=== PATIENT | male | born 2000 | race Caucasian/White ===

== ENCOUNTER 2019-12-18 09:47 | Emergency (ER) | payer BC, SELFPAY ==
--- NOTE | ~2019-12-18 | XR_ITS ---
XR abdomen/kub 1V 12/18/2019 10:31 INDICATION: Right flank pain TECHNIQUE: KUB COMPARISON: CT dated 12/18/2019 FINDINGS: Bowel gas pattern is normal. Moderate colonic fecal loading obscures the kidneys and pelvis . There is no evidence of free air, mass, organomegaly, ascites or obstruction. No abnormal calculi are seen. The bones appear intact. IMPRESSION: 1: No acute abdominal abnormality identified. Reviewed, dictated and finalized at location B.
--- NOTE | ~2019-12-18 | CT_ITS ---
EXAMINATION: CT abdomen pelvis wo con DATE: 12/18/2019 10:30 INDICATION: Right flank pain. TECHNIQUE: Computed tomography (CT) of the abdomen and pelvis was performed without intravenous contr ast. Automated exposure control and iterative reconstruction technique were employed. The dose-length product was 216.10 mGy-cm. COMPARISON: 03/05/2019 FINDINGS: Lung bases are clear. Visualized inferior heart is normal. No pericardial or pleural effusion. Liver, gallbladder, spleen, pancreas and bilateral adrenal glands are normal. There are bilateral 1-[address] ones in both kidneys, 2 on the right and 5 on the left. There is an additional 102 mm stone at the ri ght ureterovesicular junction which results in mild right hydroureteronephrosis. The bladder is decom pressed. Bowels including the appendix are normal. No free intraperitoneal gas or fluid. No pathologi wil enlarged abdominal or pelvic lymphadenopathy. Mild lumbar levocurvature. Small bone island at t he left femoral head. IMPRESSION: 1. Bilateral nephrolithiasis with at least partially obstructing 1-2 mm stone at the right ureteroves icular junction with mild right hydroureteronephrosis. Reviewed, dictated and finalized at location A. IMPRESSION: 1. Bilateral nephrolithiasis with at least partially obstructing 1-2 mm stone a t the right ureterovesicular junction with mild right hydroureteronephrosis.
[2019-12-18 09:59] VITALS: BP 129/78; PULSE 73; RESP 23; TEMP 36.3; O2SAT 100
[2019-12-18] MEDS: ONDANSETRON INJ 4 MG/2 ML VIAL (10:04)
[2019-12-18 10:16] LABS: Basophils Absolute Auto 0.1 K/mm3 (0.0-0.1); Basophils Percent Auto 0.4 % (0.2-1.2); Eosinophils Absolute Auto 0.1 K/mm3 (0-0.3); Eosinophils Percent Auto 1.1 % (0-4.4); Hematocrit 42.2 % (42.0-52.0); Hemoglobin 14.4 g/dL (14.0-18.0); Immature Granulocyte Absolute 0.03 K/mm3 (0.00-0.031); Immature Granulocyte Percent A 0.2 % (0-0.5); Lymphocytes Absolute Auto 6.35 K/mm3 (0.9-3.2); Lymphocytes Percent Auto 49.3 % (18.3-44.2); Mean Corpuscular HGB Conc 34.1 g/dl (32-36); Mean Corpuscular Hemoglobin 27.9 pg (26-34); Mean Corpuscular Volume 81.6 fl (80-100); Mean Platelet Volume 10.1 fl (7.4-10.4); Monocytes Percent Auto 7.4 % (2.6-8.5); Neutrophils Absolute Auto 5.4 K/mm3 (1.3-6.7); Neutrophils Percent Auto 41.6 % (45.5-73.1); Platelet Count Result 285 k/mm3 (150-375); Red Blood Count 5.17 M/mm3 (4.6-6.20); White Blood Count 12.9 K/mm3 (4.5-10.0)
[2019-12-18] MEDS: MORPHINE SULFATE 4 MG/ML INJ IV PUSH (10:24)
--- NOTE | 2019-12-18 10:27 | PC.NURSE ---
Pt to CT scan via WC.
[2019-12-18] MEDS: FAMOTIDINE 20 MG/2 ML VIAL IV PUSH (10:34)
[2019-12-18] MEDS: SODIUM CHLORIDE 0.9% IV 1,000 ML 999 ML IV CONT ×2 (10:35)
[2019-12-18 10:43] LABS: Add Urine Microscopic? YES; Appearance Urine Clear (Clear); Bilirubin Urine Negative (Negative); Blood Urine 2+ (Negative); Calcium Oxalate Crystals Urine Present /hpf; Color Urine Yellow (Yellow); Glucose Urine UA Negative (Negative); Ketones Urine Negative (Negative); Leukocyte Esterase Ur Negative LEU/UL (Negative); Mucus Urine Moderate /lpf; Nitrate Urine Negative (Negative); Protein Urine Negative (Negative); RBC Urine 21-50 /hpf (0-2); Specific Grav Ur 1.023 (1.001-1.035); Squamous Epithelial Cell Urine Rare /hpf (Few); Urobilinogen Urine Negative mg/dL (<2.0)
[2019-12-18 10:52] LABS: Alanine Aminotransferase 26 U/L (4-50); Albumin Level 4.7 g/dL (3.5-5.1); Alkaline Phosphatase 83 U/L (38-126); Aspartate Amino Transferase 35 U/L (17-59); Bilirubin,Total 0.3 mg/dL (0.2-1.3); Blood Urea Nitrogen 13 mg/dL (9-20); Calcium 9.3 mg/dL (8.4-10.2); Carbon Dioxide 24 mmol/L (22-30); Chloride 102 mmol/L (98-107); Estimated CRCL calculation 138 ml/min; Estimated Glomerular Filt Rate > 60; Glucose 127 mg/dL (75-110); Lipase 44 U/L (23-300); Sodium 138 mmol/L (137-145)
--- NOTE | 2019-12-18 11:08 | PC.NURSE ---
Addendum entered by Jes Sheridan RN 12/18/19 11:09: Entered on wrong pt. Original Note: RN report received from Pt resting on stretcher, SOLIS Rowell at bedside.
--- NOTE | 2019-12-18 11:09 | PC.NURSE ---
RN report given by Renée. Pt resting on stretcher, pt medicated, pain .
[2019-12-18] MEDS: KETOROLAC 30 MG/ML VIAL (*BKC) IV PUSH (11:15)
--- NOTE | 2019-12-18 11:16 | ED.ABDPAIN ---
HPI - Abdominal Pain General Chief Complaint: Abdominal Pain Stated Complaint: vomiting/r flank pain/hx kidney stones Time Seen by Provider: 12/18/19 10:12 Source: patient Mode of arrival: ambulatory Limitations: no limitations History of Present Illness HPI narrative: Patient is a 19-year-old male who presents with acute onset of flank pain noting that it started this morning after getting home from work pain is severe in nature with associated nausea and vomiting stating that this is consistent with past urolithiasis patient has not had anything for his symptoms presents in acute distress with vomiting patient denies recent illness and notes that he had felt fine prior to the onset of symptoms Related Data Allergies Allergy/AdvReac Type Severity Reaction Status Date / Time No Known Allergies Allergy Verified 12/18/19 10:05 Review of Systems Review of Systems: All systems reviewed & are unremarkable except as noted in HPI and below PMFSH Past Medical History Medical History Kidney stone Surgical History Surgical History History of urethral stent Social History Social History Smoking status: Never smoker Gender identity (if verbalized by the patient): Male Exam Narrative: Exam Narrative: GENERAL: ill-appearing, well-nourished, and in acute pain HEAD: Normocephalic, atraumatic. EYES: PERRLA and EOMI. ENT: Nares clear, no rhinorrhea or epistaxis. Mucous membranes moist. Oropharynx without tonsillar hypertrophy exudate or other lesions. CHEST: Clear to auscultation. No respiratory distress. No wheezes rales or rhonchi HEART: Regular rate and rhythm. No murmur heard. Normal peripheral pulses. ABDOMEN: Soft, generalized tendernes, nondistended EXTREMITIES: Normal range of motion. No edema. SKIN: Warm, dry, no rash. NEURO: No focal deficits. Alert and oriented x3. PSYCH: Normal mood and affect. Course Course Emergency Course: Patient in the room resting comfortably found to have urolithiasis as the etiology of his pain patient in no distress after medications resting comfortably patient felt appropriate for outpatient reevaluation will follow with urology has a urologist patient provided with reasons to return Vital Signs Vital signs: Vital Signs Temperature 97.4 F L 12/18/19 09:59 Pulse Rate 73 12/18/19 09:59 Respiratory Rate 23 H 12/18/19 09:59 Blood Pressure 129/78 12/18/19 09:59 Pulse Oximetry 100 12/18/19 09:59 Temperature 97.4 F L 12/18/19 09:59 Pulse Rate 73 12/18/19 09:59 Respiratory Rate 23 H 12/18/19 09:59 Blood Pressure 129/78 12/18/19 09:59 Pulse Oximetry 100 12/18/19 09:59 MDM - Abdominal Pain MDM Narrative Medical decision making narrative: Patient with in the room in no distress feeling much better after interventions to include fluids and pain medication afebrile nontoxic-appearing no pain distress. Patient felt to be appropriate for outpatient reevaluation agreeing to follow-up as directed or to return if symptoms worsen or concerns Lab Data Result diagrams: 12/18/19 10:06 12/18/19 10:06 Labs: Lab Results 12/18/19 12/18/19 12/18/19 Range/Units 10:06 10:06 10:18 WBC 12.9 H (4.5-10.0) K/mm3 RBC 5.17 (4.6-6.20) M/mm3 Hgb 14.4 (14.0-18.0) g/dL Hct 42.2 (42.0-52.0) % MCV 81.6 (80-100) fl MCH 27.9 (26-34) pg MCHC 34.1 (32-36) g/dl RDW 13.0 (11.5-14.5) % Plt Count 285 (150-375) k/mm3 MPV 10.1 (7.4-10.4) fl Immature Gran % (Auto) 0.2 (0-0.5) % Neut % (Auto) 41.6 L (45.5-73.1) % Lymph % (Auto) 49.3 H (18.3-44.2) % [place] % (Auto) 7.4 (2.6-8.5) % Eos % (Auto) 1.1 (0-4.4) % Baso % (Auto) 0.4 (0.2-1.2) % Lymph # (Auto) 6.35 H (0.9-3.2) K/mm3 [place] # (Auto) 1.0 H (0.1-0.6)
[2019-12-18 12:54] VITALS: BP 130/70; PULSE 78; RESP 18; O2SAT 99
== END 2019-12-18 12:56 | disposition home or self-care (01) ==
PROVIDERS: Emergency Provider Emergency Medicine
DX: N13.2 Hydronephrosis with renal and ureteral calculous obstruction (principal)
CPT/HCPCS: 36415; 74018; 74176; 80053; 81001; 83690; 85025; 96361; 96365; 96375; 99284; J0131; J1170; J1885; J2270; J2405; J7030

== ENCOUNTER 2024-01-26 10:55 | Emergency (ER) | payer BC, SELFPAY ==
[2024-01-26] VITALS (20 sets, daily range): BP systolic 75–125; BP diastolic 49–74; PULSE 56–98; RESP 14–17; TEMP 36.5–37.1; O2SAT 98–100
--- NOTE | ~2024-01-26 | CT_ITS ---
EXAMINATION: CT abdomen pelvis wo con DATE: 01/26/2024 13:06 INDICATION: Kidney stone. TECHNIQUE: Computed tomography (CT) of the abdomen and pelvis was performed without intravenous contr ast. Automated exposure control and iterative reconstruction technique were employed. The dose-length product was 220.20 mGy-cm. COMPARISON: CT abdomen and pelvis 12/18/2019 FINDINGS: The visualized portions of the lung bases are clear without pneumonia or pleural effusion. The heart is normal. No pericardial effusion. The liver, gallbladder, spleen, pancreas, and adrenal g lands are normal. There is a 2 mm stone in right kidney. There is mild right hydronephrosis and hydro ureter. There is a 4 mm stone in distal right ureter. There are approximately 6 stones in left kidney measuring up to 3 mm. There are no dilated loops of bowel. The appendix is normal. There are no path ologically enlarged lymph nodes. There is no free intraperitoneal fluid. There is mild lumbar spondyl osis. IMPRESSION: 1. 4 mm stone in distal right ureter with mild right hydronephrosis and hydroureter. 2. Bilateral nonobstructing kidney stones. Reviewed, dictated and finalized at location A. IMPRESSION: 1. 4 mm stone in distal right ureter with mild right hydronephrosis and hydrour eter. 2. Bilateral nonobstructing kidney stones.
[2024-01-26 13:22] LABS: Basophils Percent Auto 0.2 % (0.2-1.2); Hematocrit 43.7 % (42.0-52.0); Hemoglobin 14.9 g/dL (14.0-18.0); Immature Granulocyte Absolute 0.04 K/mm3 (0.00-0.031); Immature Granulocyte Percent A 0.3 % (0-0.5); Lymphocytes Absolute Auto 0.88 K/mm3 (0.9-3.2); Lymphocytes Percent Auto 5.9 % (18.3-44.2); Mean Corpuscular HGB Conc 34.1 g/dl (32-36); Mean Corpuscular Hemoglobin 29.6 pg (26-34); Mean Corpuscular Volume 86.7 fl (80-100); Mean Platelet Volume 10.3 fl (7.4-10.4); Monocytes Absolute Auto 0.5 K/mm3 (0.1-0.6); Monocytes Percent Auto 3.6 % (2.6-8.5); Neutrophils Absolute Auto 13.4 K/mm3 (1.3-6.7); Platelet Count Result 312 k/mm3 (150-375); Red Blood Count 5.04 M/mm3 (4.6-6.20); Red Cell Distribution Width 12.7 % (11.5-14.5); White Blood Count 14.9 K/mm3 (4.5-10.0)
[2024-01-26 13:27] LABS: Add Urine Microscopic? YES; Appearance Urine Cloudy (Clear); Bacteria Urine None Seen /hpf; Bilirubin Urine Negative (Negative); Blood Urine 3+ (Negative); Color Urine Dark Yellow (Yellow); Glucose Urine UA Negative (Negative); Ketones Urine 2+ mg/dL (Negative); Leukocyte Esterase Ur Trace LEU/UL (Negative); Mucus Urine Present /lpf; Nitrate Urine Negative (Negative); Protein Urine 1+ mg/dL (Negative); RBC Urine >100 /hpf (0-2); Specific Grav Ur 1.032 (1.001-1.035); Squamous Epithelial Cell Urine None Seen /hpf (Few); WBC Urine 0-5 /hpf (0-3)
[2024-01-26] MEDS: SODIUM CHLORIDE 0.9% IV 1,000 ML 999 ML IV CONT (13:31)
[2024-01-26] MEDS: KETOROLAC 30 MG/ML VIAL (*BKC) IV PUSH (13:32)
[2024-01-26] MEDS: ONDANSETRON INJ 4 MG/2 ML VIAL IV PUSH (13:33)
[2024-01-26 13:39] LABS: Alanine Aminotransferase 28 U/L (6-50); Albumin Level 4.8 g/dL (3.5-5.1); Alkaline Phosphatase 87 U/L (38-126); Anion Gap 11 mmol/L (4-12); Aspartate Amino Transferase 34 U/L (17-59); Bilirubin,Total 0.7 mg/dL (0.2-1.3); Blood Urea Nitrogen 14 mg/dL (9-20); Calcium 9.4 mg/dL (8.4-10.2); Carbon Dioxide 26 mmol/L (22-30); Chloride 99 mmol/L (98-107); Estimated CRCL calculation 111 ml/min; Estimated Glomerular Filt Rate > 60; Glucose 105 mg/dL (65-110); Potassium 3.9 mmol/L (3.4-5.0); Sodium 136 mmol/L (137-145)
--- NOTE | 2024-01-26 13:49 | ED.MALEGU ---
HPI - Male Genitourinary General Chief complaint: Urogenital-Male Stated complaint: kidney stone Time Seen by Provider: 01/26/24 13:11 History of Present Illness HPI Narrative: Patient is a 23-year-old male who presents ER with right-sided flank pain. Ongoing for a couple weeks with developed severe pain this morning. Worse on the right side going into the lower abdomen. Has urinary frequency and urgency. Has history of kidney stones and this feels similar. No alleviating factors. He has seen Dr. Gutierrez in the past. Related Data Allergies Allergy/AdvReac Type Severity Reaction Status Date / Time No Known Allergies Allergy Verified 01/26/24 12:04 Review of Systems Review of Systems: All systems reviewed & are unremarkable except as noted in HPI and below Constitutional: Constitutional: Reports no additional constitutional complaints ENT: Reports system reviewed and no additional complaints, except as documented Cardiovascular: Cardiovascular: Reports no additional cardiovascular complaints Respiratory: Respiratory: Reports no additional respiratory complaints Gastrointestinal: Gastrointestinal: Reports abdominal pain, Denies diarrhea, Reports nausea and Denies vomiting Genitourinary: Genitourinary: Denies testicular pain and Reports urinary frequency Comments: Flank pain PMFSH Past Medical History Medical History (Updated 01/26/24 @ 15:41 by Ashwin Arce MD) Kidney stone Surgical History Surgical History History of urethral stent Social History Social History Smoking status: Never smoker Gender identity (if verbalized by the patient): Male Exam Narrative: GENERAL: Uncomfortable-appearing, well-nourished, and in no acute distress. HEAD: Normocephalic, atraumatic. ENT: Mucous membranes moist. CHEST: Clear to auscultation. No respiratory distress. HEART: Regular rate and rhythm. Normal peripheral pulses. ABDOMEN: Soft, nontender, nondistended. EXTREMITIES: Normal range of motion. No edema. SKIN: Warm, dry, no rash. NEURO: Alert and oriented x3. PSYCH: Normal mood and affect. Course Course Emergency Course: No infection urine. Normal renal function. Patient does have a distal ureteral stone. Pain controlled with Toradol and Zofran. Received 1 L IV fluid. Discharge home with supportive medications and follow-up with urology. Vital Signs Vital signs: Vital Signs Temperature 97.7 F 01/26/24 11:57 Pulse Rate 56 L 01/26/24 11:57 Respiratory Rate 14 01/26/24 11:57 Blood Pressure 125/71 01/26/24 11:57 Pulse Oximetry 100 01/26/24 11:57 Oxygen Delivery Room Air 01/26/24 11:57 Temperature 97.7 F 01/26/24 11:57 Pulse Rate 56 L 01/26/24 11:57 Respiratory Rate 14 01/26/24 11:57 Blood Pressure 114/74 01/26/24 13:31 Pulse Oximetry 100 01/26/24 13:45 Oxygen Delivery Room Air 01/26/24 11:57 MDM - Male Genitourinary Lab Data 01/26/24 13:13 01/26/24 13:13 Labs: Lab Results 01/26/24 01/26/24 Range/Units 13:01 13:13 WBC 14.9 H (4.5-10.0) K/mm3 RBC 5.04 (4.6-6.20) M/mm3 Hgb 14.9 (14.0-18.0) g/dL Hct 43.7 (42.0-52.0) % MCV 86.7 (80-100) fl MCH 29.6 (26-34) pg MCHC 34.1 (32-36) g/dl RDW 12.7 (11.5-14.5) % Plt Count 312 (150-375) k/mm3 MPV 10.3 (7.4-10.4) fl Immature Gran % (Auto) 0.3 (0-0.5) % Neut % (Auto) 90.0 H (45.5-73.1) % Lymph % (Auto) 5.9 L (18.3-44.2) % [place] % (Auto) 3.6 (2.6-8.5) % Eos % (Auto) 0.0 (0-4.4) % Baso % (Auto) 0.2 (0.2-1.2) % Lymph # (Auto) 0.88 L (0.9-3.2) K/mm3 [place] # (Auto) 0.5 (0.1-0.6) K/mm3 Eos # (Auto) 0.0 (0-0.3) K/mm3 Baso # (Auto) 0.0 (0.0-0.1) K/mm3 Abs Immat Gran (auto) 0.04 H (0.00-0.031) K/mm3 Absolute Neuts (auto) 13.4 H (1.3-6.7) K/mm3 Absolute
== END 2024-01-26 15:59 | disposition home or self-care (01) ==
PROVIDERS: Emergency Provider Emergency Medicine
DX: N13.2 Hydronephrosis with renal and ureteral calculous obstruction (principal); Z87.442 Personal history of urinary calculi
CPT/HCPCS: 36415; 74176; 80053; 81001; 85025; 96361; 96374; 96375; 99284; J1885; J2405; J7030